=== PATIENT | male | born 1950 | race Caucasian/White ===

== ENCOUNTER 2025-03-17 10:32 | Emergency (ER) | payer OTHER, SELFPAY ==
--- NOTE | ~2025-03-17 | XR_ITS ---
EXAMINATION: XR CHEST 1 VIEW HISTORY: weakness COMPARISON: There are no prior studies available for comparison. FINDINGS: A single AP portable view of the chest performed at 11:33 AM is submitted. The lungs are hyperinflated, consistent with COPD. There are opacities in the right upper lung which could represent pneumonia. There is no pleural effusion, pneumothorax, or pulmonary vascular congestion. The heart is normal in size. There is degenerative disc disease of the spine. XR/XR chest 1V IMPRESSION: COPD. Right upper lung opacities which could represent pneumonia. Follow-up is recommended. Electronically signed by: Ravinder Gonzalez MD 03/17/2025 11:46 AM EDT
[2025-03-17 10:43] VITALS: BP 202/88; PULSE 31; RESP 16; TEMP 36.1; O2SAT 98; BMI 20.9
--- NOTE | 2025-03-17 10:44 | ED.GENADULT ---
HPI - General Adult General Chief complaint: Dizziness Stated complaint: Dehydration Time Seen by Provider: 03/17/25 11:11 Source: patient Mode of arrival: ambulatory Limitations: no limitations History of Present Illness ED Provider: HPI narrative: 75-year-old male, smoker, on medications for COPD, cholesterol, lisinopril, was seen at urgent care last week apparently diagnosed with pneumonia, he was noted to have bradycardia and was told to go to the ER but he declined, he states he feels fine and has hiked [place]. Denies chest pain, denies ongoing dyspnea no fevers or chills. He presented because he feels dehydrated would like IV fluids, reports dry mouth and increased urination. Related Data Allergies Allergy/AdvReac Type Severity Reaction Status Date / Time No Known Allergies Allergy Verified 03/17/25 10:43 Review of Systems Constitutional: Constitutional: Reports as per [facility] Social History Social History Unable to assess alcohol history related to: Unknown Smoked in Last 30 Days: Yes Use of substances other than those prescribed or required for medical reasons: Unknown Advance Directives: No Advance Directives Information Provided: No Do you have a plan to hurt others: No Plan Physical Exam ED Vital Signs: Vital Signs - 24 hr 03/17/25 10:43 03/17/25 12:30 03/17/25 12:56 Temperature 97.0 F Pulse Rate 31 L 30 L 31 L Respiratory Rate 16 17 Blood Pressure 202/88 H 190/65 H Pulse Oximetry 98 98 Oxygen Delivery Method Room Air Room Air 03/17/25 15:39 03/17/25 18:19 03/17/25 18:25 Temperature 97.7 F Pulse Rate 32 L 34 L 34 L Respiratory Rate 17 16 16 Blood Pressure 163/103 H 155/54 H Pulse Oximetry 95 98 Oxygen Delivery Method Room Air Room Air BMI result Body Mass Index 20.9 Const Other: General: ?Appears of stated age ? Neck: Supple, no LAD ? ?CV: Bradycardia radial pulses +2 ? ?Resp: ?No wheezing rales rhonchi no stridor moving air well ? Abd: ?Bowel sounds are present, no tenderness no rebound no rigidity ? ?MSK: FROM, strength 5/5 all extremities, no lower extremity edema ? Skin: Warm, dry, intact, ? ?Neuro: ?Alert and oriented x3, moving upper and lower extremities symmetrically, no obvious facial asymmetry noted, cranial nerves 2-12 intact Course Course Course Narrative: This is an RME: Additional HPI, ROS, PE not included below will be deferred to primary provider. RME assessment and note performed by: Kinza Bright PA-C This is a 25-rl[age]ad-male, with a hx of HTN on lisinopril 10mg, HLD, COPD, who presents to the ER with concerns of urinary frequency, increased thirst. Reporting some dizziness. No CP or SOB Pt was diagnosed pneumonia at an urgent care this morning. Was told to report to the ER due to low heart rate and dehydration Lungs with expiratory wheezes throughout all lung maddox, bradycardic. BP elevated Plan: Labs, EKG, CXR, further ER eval needed Medications Administered Discontinued Medications Generic Name Dose Route Start Last Admin Trade Name Freq PRN Reason Stop Dose Admin Albuterol/Ipratropium 3 ml 03/17/25 18:13 03/17/25 18:23 Albuterol/Iprat 2.5/0.5mg 3 Ml Ampul.Neb INHALE 03/17/25 18:14 3 ml ONCE ONE Administration Amlodipine Besylate 10 mg 03/17/25 11:55 03/17/25 12:02 Amlodipine Besylate 10 Mg Tablet PO 03/17/25 11:56 10 mg ONCE ONE Administration Protocol Sodium Chloride 1,000 mls @ 999 mls/hr 03/17/25 12:00 03/17/25 13:07 Ns IV 03/17/25 13:00 Infused .Q1H1M GEOFF Infusion Medical Decision Making Medical Decision Making MDM Narrative: 11:34 AM 03/17/2025 (Dr. Man Colbert): Patient noted to have either 3-1 second-degree AV quan block or full heart block, patient was seen urgent care last week with decreased heart rate and he was told to go to the ER and apparently hit him go at that time he is coming in because he states he is dehydrated and I did discuss with the patient that he has a really bad heart block, but him and his a more concentrated whether he needs IV fluids. With that said I reached out to Dr. Ivory from Cardiology because patient is also extremely hypotensive and he confirmed that this is a full heart block and needs to be transferred to [facility], as far as managing blood pressure to give him his regular lisinopril or 10 mg amlodipine, I was aiming for more of a nitro drip as not to add additional AV quan block but if it is a full heart block I think it is reasonable to give him a calcium channel nereida. I will discuss with the patient, I have been trying to make them understand that this is dangerous and we will determine whether they agreeable to transfer and further management. He has full capacity to make decisions. 11:53 AM 03/17/2025 (Dr. Man Colbert): The Dr. Ivory evaluated the patient at bedside and also had a hard time with the patient, patient is convinced that if he gets fluids his AV quan block we will resolve, I spoke to the patient and told him that I will give him IV fluids but at the same time I am planning to transfer to [facility], with that said I still have a suspicion that he is going to receive IV fluids and then leave the ER, so I will have AMA form on file with him understanding that if he leaves against medical advice of myself and information systems security manager he will and he has full capacity to understand then, he has verbalized back to me. I am also calling [facility] transfer line 12:15 PM 03/17/2025 (Dr. Man Colbert): Dr. Trevino at [facility] is accepting provider 12:39 PM 03/17/2025 (Dr. Man Colbert): He is agreeable for transfer Contacted at [facility]. They do not have a bed today. I did discuss the plan with the patient. So unfortunately they do not have a bed. I recommend transferred to a tertiary center so he could get the pacemaker as soon as possible. However patient does not want to go to [place] does not want to [facility]. He does not go onto go to any other tertiary hospital that is outside of his area. He is concerned that his is not able to traveled with him. I discussed the risk this plan. He agrees and understands. Discussed the case with the hospitalist and ICU doctor on-call. They recommended holding patient is a ER at this time until bed is available at [facility]. At this time we will continue to observe the patient and hold him in the ER [facility] has a bed for patient. Patient will be transfer. BP remains stable. Patient appears well. Differential Diagnosis Differential Diagnoses: The differential diagnosis associated with the presentation includes Admission/Observation Consideration of admission/observation: Escalation of care including admission/observation considered Consult Healthcare Provider Management of the patient was discussed with: Stylist Assistant (Cachorro Burton) Lab Data 03/17/25 11:08 03/17/25 11:07 Labs: Lab Results 03/17/25 03/17/25 03/17/25 Range/Units 11:07 11:08 13:33 WBC 11.5 H (4.8-10.8) X10*3/uL RBC 4.37 L (4.60-5.80) X10*6/uL Hgb 14.3 (14.0-18.0) g/dl Hct 42.0 (42.0-52.0) % MCV 96.1 (80.0-98.0) fL MCH 32.7 (27.0-33.0) pg MCHC 34.0 (31.0-36.0) g/dl RDW 13.7 (11.0-16.0) % Plt Count 285 (160-400) X10*3/uL MPV 9.5 (9.4-12.4) fL Immature Gran % (Auto) 0.3 (0.0-0.4) % Neut % (Auto) 76.2 H (45-73) % Lymph % (Auto) 16.3 L (20-40) % Gallia % (Auto) 6.4 (2-11) % Eos % (Auto) 0.7 (0-4) % Baso % (Auto) 0.1 (0-2) % Lymph # (Auto) 1.9 (1.2-4.9) X10*3/uL Gall[place] # (Auto) 0.7 (0.1-1.2) X10*3/uL Eos # (Auto) 0.1 (0.0-0.4) X10*3/uL Baso # (Auto) 0.0 (0.0-0.2) X10*3/uL Abs Immat Gran (auto) 0.04 H (0.00-0.03) X10*3/uL Absolute Neuts (auto) 8.8 H (2.0-8.3) x10*3/uL Absolute Nucleated RBC 0.000 (0.0-0.012) X10*3/uL Nucleated RBC % (auto) 0.0 (0.0-0.2) /100WBC Sodium 140 (135-145) mmol/L Potassium 4.1 (3.3-5.1) mmol/L Chloride 108 (96-108) mmol/L Carbon Dioxide 25 (22-29) mmol/L Anion Gap 11 L (12-20) BUN 10 (9-16) mg/dL Creatinine 0.70 (0.5-1.4) mg/dL Estim Creat Clear Calc 75.6 Estimated GFR > 60 Random Glucose 100 (60-115) mg/dL Calcium 8.8 (8.4-10.2) mg/dL Magnesium 2.4 (1.6-2.6) mg/dL Total Bilirubin 0.6 (0.0-1.0) mg/dL Direct Bilirubin 0.2 (0.0-0.5) mg/dL AST 36 (5-37) U/L ALT 50 H (0-40) U/L Alkaline Phosphatase 95 (39-117) U/L Troponin I High Sens 12.6 (<3.5-35.0) ng/L Total Protein 6.7 (6.5-8.0) g/dL Albumin 4.0 (3.5-5.0) g/dL TSH 0.56 (0.32-4.0) uIU/mL COVID-19 (SHAYY) Negative (Negative) COVID-19 Clin Com See Note Influenza Type A (SAYDA) Negative (Negative) Influenza Type B (SAYDA) Negative (Negative) Influenza A & B Note See Note Independent Interpretation I performed an independent interpretation of an: EKG (31 beats per minute complete heart block) Chronic Conditions Patient?s care impacted by: Hypertension Critical Care Time Critical Care Time Critical Care Time: Yes Total Critical Care Time: 45 Attestation: Time is exclusive of separately billable procedures. Time includes: direct patient care, patient reassessment, coordination of patient care, interpretation of data (laboratory data, pulse oximetry, arterial blood gases and chest xrays), review of patient's medical records, medical consultation and documentation of patient care. Procedures excluded from critical care time: central intravenous line placement and electrocardiography. Discharge Plan Discharge Clinical Impression: Complete heart block, Hypertensive urgency Patient Disposition: Xfer Other Transfer Details: [facility] Print Language: Mozambican
--- NOTE | 2025-03-17 10:46 | ECG_ITS ---
Test Reason : DISSINESS Blood Pressure : */* mmHG Vent. Rate : 31 BPM Atrial Rate : 93 BPM P-R Int : 140 ms QRS Dur : 122 ms QT Int : 560 ms P-R-T Axes : 63 33 53 degrees QTcB Int : 402 ms Complete Heart Block Abnormal ECG No previous ECGs available Referred By: Kinza Bright Electronically Signed By: DWAYNE LONDON
[2025-03-17 11:13] LABS: MANUAL DIFF FLAG NO
[2025-03-17 11:14] LABS: Hematocrit 42.0 % (42.0-52.0); Hemoglobin 14.3 g/dl (14.0-18.0); Imm Gran Abs Auto 0.04 X10*3/uL (0.00-0.03); Imm Gran Pct Auto 0.3 % (0.0-0.4); Lymphocytes Absolute Auto 1.9 X10*3/uL (1.2-4.9); Mean Corpuscular HGB Conc 34.0 g/dl (31.0-36.0); Mean Corpuscular Hemoglobin 32.7 pg (27.0-33.0); Mean Corpuscular Volume 96.1 fL (80.0-98.0); NRBC Abs Auto 0.000 X10*3/uL (0.0-0.012); NRBC Pct Auto 0.0 /100WBC (0.0-0.2); Platelet Count 285 X10*3/uL (160-400); Red Blood Count 4.37 X10*6/uL (4.60-5.80); White Blood Count 11.5 X10*3/uL (4.8-10.8)
[2025-03-17 11:28] LABS: Alanine Aminotransferase 50 U/L (0-40); Albumin Level 4.0 g/dL (3.5-5.0); Alkaline Phosphatase 95 U/L (39-117); Anion Gap 11 (12-20); Aspartate Amino Transferase 36 U/L (5-37); Blood Urea Nitrogen 10 mg/dL (9-16); Calcium 8.8 mg/dL (8.4-10.2); Carbon Dioxide 25 mmol/L (22-29); Chloride 108 mmol/L (96-108); Creatinine Clr Calc Pharmacy 75.6; Estimated Glomerular Filt Rate > 60; Magnesium 2.4 mg/dL (1.6-2.6); Potassium 4.1 mmol/L (3.3-5.1); Sodium 140 mmol/L (135-145); Total Protein 6.7 g/dL (6.5-8.0)
[2025-03-17 11:28] LABS: COVID-19 Test Negative (Negative); IDNOW Serial# 6674DD1D
[2025-03-17 11:35] LABS: Troponin-I High Sensitivity 12.6 ng/L (<3.5-35.0)
[2025-03-17 11:36] LABS: IDNOW Serial# 55D5AD1C; Influenza B2 Negative (Negative)
--- NOTE | 2025-03-17 11:56 | P.CONCA_ITS ---
History of Present Illness History of Present Illness Date of Service: 03/17/25 Chief complaint: Dehydration Narrative: This is a cardiology consultation regarding heart block. Patient himself is a very poor historian and not able to give me any meaningful information. He repeatedly keeps saying that he was just dehydrated. It seems that he might have gone to urgent Care few days back and they had recommended hospital evaluation but not entirely clear as to what happened. Patient is not able to give me much information at all. He thinks he is fine. He denies any active chest pains or any shortness of breath or presyncope/syncope. At baseline, seems he has hypertension on lisinopril. Review of Systems 2 Review of Systems: Yes all other systems are reviewed and are negative Constitutional: Constitutional: Reports as per HPI and Reports no additional constitutional complaints Eyes: Eyes: Reports as per HPI and Denies no additional eye complaints ENT: Denies system reviewed and no additional complaints, except as documented and Reports as per HPI Cardiovascular: Cardiovascular: Reports as per HPI, Reports no additional cardiovascular complaints, Denies acrocyanosis, Denies cool extremities, Denies chest pain, Denies leg edema, Denies lightheadedness, Denies palpitations and Denies dyspnea Respiratory: Respiratory: Reports as per HPI, Denies no additional respiratory complaints and Denies dyspnea Gastrointestinal: Gastrointestinal: Reports as per HPI and Denies no additional gastrointestinal complaints Genitourinary: Genitourinary: Reports no additional male genitourinary complaints and Reports as per HPI Musculoskeletal: Musculoskeletal: Reports no additional musculoskeletal complaints and Reports as per HPI Integumentary/Breasts: Skin/Breast: Reports system reviewed and no additional complaints, except as docu Neurologic: Reports system reviewed and no additional complaints, except as documented and Reports as per HPI Psychiatric: Psychiatric: Reports no additional psychiatric complaints and Reports as per HPI Endocrine: Endocrine: Reports no additional endocrine complaints, Reports as per HPI and Denies palpitations Hematologic/Lymphatic: Hematologic/Lymphatic: Reports no additional hematologic/lymphatic complaints and Reports as per HPI Allergic/Immunologic: Allergic/Immunologic: Reports no additional allergic/immunologic complaints and Reports as per HPI [facility] Family History Pertinent family history: No pertinent family history Social History Social History Advance Directives: No Advance Directives Information Provided: No Do you have a plan to hurt others: No Plan Meds Allergies Allergy/AdvReac Type Severity Reaction Status Date / Time No Known Allergies Allergy Verified 03/17/25 10:43 Active Medications: Current Medications Sodium Chloride (Ns) 1,000 mls @ 999 mls/hr IV .Q1H1M GEOFF Stop: 03/17/25 13:00 Physical Exam 2 Vital Signs: Vital Signs: Last Vital Signs Temp 97.0 F 03/17/25 10:43 Pulse 31 L 03/17/25 10:43 Resp 16 03/17/25 10:43 BP 202/88 H 03/17/25 10:43 Pulse Ox 98 03/17/25 10:43 O2 Del Method Room Air 03/17/25 10:43 BMI result Body Mass Index 20.9 Const: General: comfortable and no acute distress O rientation/consciousness: patient oriented x3 HEENT: Other: Unremarkable Head: Yes normal to inspection Neck: Neck: Yes normal visual inspection Chest: Chest palpation & inspection: normal inspection of the chest Resp: Auscultation: clear to auscultation bilaterally Cardio: Palpation: normal PMI Heart sounds: S1 normal heart sound present, S2 normal heart sound present, no gallops, no murmurs and no rubs GI: Palpation (GI): Soft to palpation Back/Spine/Pelvis: Other: unremarkable Skin: General skin exam: no rashes or lesions noted Neuro: General: patient oriented x3 Extrem: General: Yes normal to inspection Psych: Mental Status: mental status grossly normal Objective Labs and Meds 03/17/25 11:08 03/17/25 11:07 Lab results: Laboratory Results - last 24 hr 03/17/25 03/17/25 11:07 11:08 WBC 11.5 H RBC 4.37 L Hgb 14.3 Hct 42.0 MCV 96.1 MCH 32.7 MCHC 34.0 RDW 13.7 Plt Count 285 MPV 9.5 Immature Gran % (Auto) 0.3 Neut % (Auto) 76.2 H Lymph % (Auto) 16.3 L Dickson % (Auto) 6.4 Eos % (Auto) 0.7 Baso % (Auto) 0.1 Lymph # (Auto) 1.9 Dickson # (Auto) 0.7 Eos # (Auto) 0.1 Baso # (Auto) 0.0 Abs Immat Gran (auto) 0.04 H Absolute Neuts (auto) 8.8 H Absolute Nucleated RBC 0.000 Nucleated RBC % (auto) 0.0 Sodium 140 Potassium 4.1 Chloride 108 Carbon Dioxide 25 Anion Gap 11 L BUN 10 Creatinine 0.70 Estim Creat Clear Calc 75.6 Estimated GFR > 60 Random Glucose 100 Calcium 8.8 Magnesium 2.4 Total Bilirubin 0.6 Direct Bilirubin 0.2 AST 36 ALT 50 H Alkaline Phosphatase 95 Troponin I High Sens 12.6 Total Protein 6.7 Albumin 4.0 COVID-19 (SHAYY) Negative COVID-19 Clin Com See Note Influenza Type A (SAYDA) Negative Influenza Type B (SAYDA) Negative Influenza A & B Note See Note ECG Interpretation: EKG shows underlying sinus rhythm with complete heart block and escape rhythm at 31/Min. Imaging Radiologist's impression: Impressions Chest X-Ray 03/17/25 11:33 IMPRESSION: COPD. Right upper lung opacities which could represent pneumonia. Follow-up is recommended. Electronically signed by: Ravinder Gonzalez MD 03/17/2025 11:46 AM EDT RP Assessment and Plan (1) Complete heart block: Status: Acute Discussed about the fact that he is in heart block and will require pacemaker placement. However, patient kept repeating the fact that he does not feel a need to stay in the hospital. Clearly explained him that he could if he left the hospital. However, he kept insisting he might just leave. I communicated that with ER physician. He should be transferred to [facility] for EP evaluation/pacemaker. (2) Hypertensive urgency: Status: Acute He has baseline hypertension but that could be much worse because of the heart block. He can get this home dose of lisinopril and we can add some amlodipine. Once the rhythm issues resolved, blood pressure will improve. Procedures Date of Service Date of Service: 03/17/25
[2025-03-17 12:30] VITALS: PULSE 30
--- OUTSIDE RECORDS SUMMARY | 2025-03-17 12:53 | XMS_ITS | Encounter Summary ---
Author Organization [employer] Address [address] [place] [address] Care Team Providers Care Podiatric Medicine Doctor Name Role Phone Unavailable Primary Care Provider Unavailabl e Encounter Details Date Type Department Care Team (Latest Contact Info) Description 12/16/2020 Abstract [facility] CONVERSIONS Dental, Provider, DDS Social History Tobacco Use Types Packs/Day Years Used Date Smoking Tobacco: Never Assessed Sex and Gender Information Value Date Recorded Sex Assigned at Male 04/16/2022 10:23 AM EDT Legal Sex Male 10:23 AM EDT Gender Identity Male 04/16/2022 10:23 AM EDT Sexual Orientation Straight 04/16/2022 10 :23 AM EDT documented as of this encounter Plan of Treatment Not on file documented as of this encounter Visit Diagnoses Not on filedocumented in this encounter
--- OUTSIDE RECORDS SUMMARY | 2025-03-17 12:53 | XMS_ITS | Clinical Summary ---
Author Organization [address] Address [address] [place] [phone] Phone Care Team Providers Care Roller Turner Name Role Phone Physician, No Pcp Primary Care Provider Unavaila ble Allergies No known active allergies Medications lisinopriL (PRINIVIL,ZESTR IL) 10 mg tablet Take 1 tablet (10 mg total) by mouth 1 (one) time each day. 06/21/2020 Active mometasone-form oterol (DULERA 100) 100-5 mcg/actuation inhaler Inhale 1 puff by mouth. Active albuterol HFA (PROAIR HFA ; PROVENTIL HFA ; VENTOLIN HFA) 90 mcg/actuation inhaler Inhale 1 puff by mouth every 4 (four) hours if needed. 01/09/2023 Active coenzyme Q-10 100 mg capsule Take 1 capsule (100 mg total) by mouth 1 (one) time each day. Active rosuvastatin 10 mg capsule, sprinkle Take 10 mg by mouth 1 (one) time each day. 08/19/2023 Active multivitamin tablet Take 1 tablet by mouth 1 (one) time each day. Active diclofenac (VOLTAREN) 75 mg EC tablet Take 1 tablet (75 mg total) by mouth 2 (two) times a day. Do not crush, chew, or split. Active acetaminophen (TYLENOL) 325 mg tablet Take 1 tablet (325 mg total) by mouth every 6 (six) hours if needed for mild pain. Active phenazopyridine (PYRIDIUM) 200 mg tablet Take 1 tablet (200 mg total) by mouth every 8 (eight) hours if needed (urinary discomfort). 21 tablet 10/23/2024 Active Surgical History Surgery Date Site/Laterality Comments TRANSURETHRAL RESECTION OF BLADDER TUMOR HIP ARTHROPLASTY Right CYSTOGRAM IMPRESSION Medical History Medical History Date Comments Hypertension Hyperlipidemia COPD (chronic obstructive pulmonary disease) ([facility] V24, [facility] V28) PTSD (post-traumatic stress disorder) Cancer ([facility] V24, [facility] V28) bladder Arthritis Fractures Social History Tobacco Use Types Packs/Day Years Used Date Smoking Tobacco: Every Day Cigarettes Tobacco Cessation:Ready to Q uit: Not Asked; Counseling Given: Not Answered Alcohol Use Standard Drinks/Week Comments Not Currently 0 (1 standard drink = 0.6 oz pur e alcohol) Interpersonal Safety Answer Date Record ed Physical Abuse Unrecognized value 10/23/2024 Verbal Abuse Unrecognized value 10/23/2024 Sex and Gender Information Value Date Recorded Sex Assigned at Not on file Legal Sex Male 6:00 PM EST Gender Identity Not on file Sexual Orientation Straight 10/23/2024 9: 27 AM EDT Obstetrics History Last Filed Vital Signs Vital Sign Reading Time Taken Comments Blood Pressure 146/78 10/23/2024 1:41 PM EDT Pulse 74 10/23/2024 1:41 PM EDT Temperature 36.1 C (97 F) 10/23/2024 1:41 PM EDT Respiratory Rate 20 10/23/2024 1:41 PM EDT Oxygen Saturation 98% 10/23/2024 1:41 PM EDT Inhaled Oxygen Concentration - - Weight 59 kg (130 lb) 10/23/2024 9:30 AM EDT Height 170.2 cm (5' 7 ) 10/23/2024 9:30 AM EDT Body Mass Index 20.36 10/23/2024 9:30 AM EDT Plan of Treatment Health Maintenance Due Date Last Done Comments Pneumococcal Vaccine: 50+ Years (2 of 2 - PPSV23, PCV20, or PCV21) 12/09/2018 10/14/2018, 03/08/2000 RSV Immunization Adult Patients (1 - 1-dose 75+ series) 02/24/2023 Cholesterol Screening (Lipid Panel) 01/14/2024 Hepatitis C Screening 01/14/2024 Social Influencers of Health Screening 01/14/2024 Depression Screening 06/17/2024 COVID-19 Vaccine ( season) 2025 04/01/2024, 05/20/2022, 11/09/2021, Additional history exists Influenza Vaccine (#1) 2025 03/17/2024, 2021 Falls Risk Assessment 10/23/2025 10/23/2024 Hypertension/CHF/CAD Annual BMP Blood Test 10/23/2025 10/23/2024 DTaP,Tdap,and Td Vaccines (3 - Td or Tdap) 10/14/2028 10/14/2018, 03/08/2000 Zoster Vaccines Completed 05/17/2021, 12/14/2020 HIB Vaccines Aged Out No longer eligi ble based on patient's age to complete this topic HPV Vaccines Aged Out No longer eligi ble based on patient's age to complete this topic Hepatitis A Vaccines Aged Out No long er eligible based on patient's age to complete this topic Hepatitis B Vaccines Aged Out No long er eligible based on patient's age to complete this topic IPV Vaccines Aged Out No longer eligi ble based on patient's age to complete this topic MMR Vaccines Aged Out No longer eligi ble based on patient's age to complete this topic Meningococcal ACWY Vaccine Aged Out N o longer eligible based on patient's age to complete this topic Meningococcal B Vaccine Aged Out No l onger eligible based on patient's age to complete this topic RSV Immunization Patients Under 20 months Aged Out No longer eligible based on patient's age to complete this topic Varicella Vaccines Aged Out No longer eligible based on patient's age to complete this topic Medical Devices Implanted Type Area Bias Machine Operator Helper Device Identifier Shelf Expiration Date Model / Serial / Lot Stent Uret Stretch Vl 7fr 22-3 - Sn/A - [id number] Implanted:Qty: 1 on 10/23/2024 by Everton Piper MD at [facility] Stents Right: [employer] Y 11/05/2026 [id number] / N/A / [id number] Procedures Procedure Name Priority Date/Time Associated Diagnosis Comments BASIC METABOLIC PANEL Routine 10/23/2024 9:12 AM EDT from Last 3 Months or Most Recently Relevant to Health Maintenance Results * (ABNORMAL) Basic metabolic panel (10/23/2024 9:12 AM EDT) Sodium 137 133 - 145 mmol/L LAB CHEMISTRY METHOD 10/23/2024 9:52 AM [facility] Potassium 3.8 3.5 - 5.5 mmol/L LAB CHEMISTRY METHOD 10/23/2024 9:52 AM [facility] Chloride 105 96 - 110 mmol/L LAB CHEMISTRY METHOD 10/23/2024 9:52 AM [facility] CO2 27 21 - 32 mmol/L LAB CHEMISTRY METHOD 10/23/2024 9:52 AM [facility] Anion Gap 5 3 - 11 LAB CHEMISTRY METHOD 10/23/2024 9:52 AM [facility] Glucose 100 70 - 100 mg/dL LAB CHEMISTRY METHOD 10/23/2024 9:52 AM [facility] BUN 12 5 - 25 mg/dL LAB CHEMISTRY METHOD 10/23/2024 9:52 AM [facility] Creatinine 0.62(L) 0.70 - 1.30 mg/dL LAB CHEMISTRY METHOD 10/23/2024 9:52 AM [facility] eGFR 99 >=60 mL/min/1. 73m2 LAB CHEMISTRY METHOD 10/23/2024 9:52 AM [facility] Comment:Calculation based on the Chronic Kidney Disease Epidemiology Collaboration (CKD-EPI) equation refit without adjustment for race. BUN/Creatinine Ratio 19.4 LAB CHEMISTRY METHOD 10/23/2024 9:52 AM [facility] Calcium 9.2 8.5 - 10.5 mg/dL LAB CHEMISTRY METHOD 10/23/2024 9:52 AM [facility] Blood Venous blood specimen / Unknown Venipuncture / Unknown 10/23/2024 9:12 AM EDT 10/23/2024 9:20 AM EDT Everton Piper MD LAB BLOOD ORDERABLES Final Resul t [facility] [address] [place] [address], from Last 3 Months or Most Recently Relevant to Health Maintenance Insurance [facility]IC[facility] Care Teams Roller Turner Relationship Specialty Start Date End Date Physician, No Pcp PCP - General 10/23/24
--- OUTSIDE RECORDS SUMMARY | 2025-03-17 12:53 | XMS_ITS | Encounter Summary ---
Demographics Address [address] [place] [address] Home Phone Mobile Phone Preferred Language en Marital Status Jehovah'S Witness Affiliation Unknown Race White Ethnic Group Not or Lati no Author Organization [facility] Address [address] [place] [address] Care Team Providers Care Warehouse Shipping Receiving Clerk Name Role Phone Physician, No Pcp Primary Care Provider Unavaila ble Encounter Details Date Type Department Care Team (Late st Contact Info) Description 04/30/2024 Lab Requisition [facility] - Main Lab [address] [facility] [address] Lore Shabazz NP [address] [place] [address] Painful micturition, unspecified Social History Tobacco Use Types Packs/Day Years Used Date Smoking Tobacco: Never Assessed Sex and Gender Information Value Date Recorded Sex Assigned at Not on file Legal Sex Male 6:00 PM EST Gender Identity Not on file Sexual Orientation Straight 10/23/2024 9: 27 AM EDT documented as of this encounter Plan of Treatment Not on file documented as of this encounter Procedures Procedure Name Priority Date/Time Associated Diagnosis Comments BACTERIAL IDENTIFICATION AND SUSCEPTIBILITY, AEROBIC Routine 04/29/2024 12:00 AM EST Painful micturition, unspecified documented in this encounter Results * (ABNORMAL) Bacterial identification and susceptibility, aerobic (04/29/2024 12:00 AM EST) Culture, Bacterial ID and Sensitivity Enterococcus faecalis(A) DANYA 05/01/2024 8:49 AM EST [facility] Comment: Edited result: Previously reported as Enterococcus species on 04/30/2024 at 1253 EST. Other Topography unknown / Unknown 04/29/2024 04/30/2024 11:44 AM EST Narrative Organism Antibiotic Method Susceptibility Enterococcus faecalis Benzylpenicillin DANYA 4 ug/ml: Susceptible Enterococcus faecalis Ampicillin DANYA <=2 ug/ml: Susceptible Enterococcus faecalis Ciprofloxacin DANYA <=0.5 ug/ml: Susceptible Enterococcus faecalis Levofloxacin DANYA 0.5 ug/ml: Susceptible Enterococcus faecalis Linezolid DANYA 2 ug/ml: Susceptible Enterococcus faecalis Vancomycin DANYA 1 ug/ml: Susceptible Enterococcus faecalis Tetracycline DANYA >=16 ug/ml: Resistant Enterococcus faecalis Nitrofurantoin DANYA 32 ug/ml: Susceptible us Lore Shabazz NP LAB MICROBIOLOGY - GENERA L ORDERABLES Final Result [facility] ([facility] [address] [place] [address], documented in this encounter Visit Diagnoses Diagnosis Painful micturition, unspecified documented in this encounter Care Teams Warehouse Shipping Receiving Clerk Relationship Specialty Start Date End Date Physician, No Pcp PCP - General 10/23/24 documented as of this encounter
--- OUTSIDE RECORDS SUMMARY | 2025-03-17 12:53 | XMS_ITS | Encounter Summary ---
Author Organization [facility] Address [address] [facility] [address] [place] [address] Care Team Providers Care Plant Operations Worker Name Role Phone Unavailable Primary Care Provider Unavailabl e Encounter Details Date Type Department Care Team (Latest Contact Info) Description 07/28/2018 Abstract [facility] CONVERSIONS Dental, Provider, DDS Social History [...]
--- OUTSIDE RECORDS SUMMARY | 2025-03-17 12:53 | XMS_ITS | Clinical Summary ---
Author Organization [facility] Address [address] [facility] [address] [place] [address] Care Team Providers Care Doubling Machine Operator Name Role Phone Unavailable Primary Care Provider Unavailabl e Social History Tobacco Use Types Packs/Day Years Used Date Smoking Tobacco: Never Assessed Sex and Gender Information Value Date Recorded Sex Assigned at Male 04/16/2022 10:23 AM EDT Legal Sex Male 10:23 AM EDT Gender Identity Male 04/16/2022 10:23 AM EDT Sexual Orientation Straight 04/16/2022 10 :23 AM EDT Plan of Treatment Health Maintenance Due Date Last Done Comments Depression Screening 1950 Lipid Panel 1950 Alcohol/Substance Use Screening 1960 Tobacco Screening 1960 DTaP/Tdap/Td Vaccines (1 - Tdap) 02/24/1967 Pneumococcal Vaccine: 50+ Ye ars (1 of 1 - PCV) 02/24/1998 Zoster Vaccines (1 of 2) 02/24/1998 RSV Patients and Pa tients Aged 60 years or older (1 - 1-dose 75+ series) 02/24/2023 COVID-19 Vaccine ( - 2023-2 5 season) 2025 Influenza Vaccine (#1) 2025 HIB Vaccines Aged Out No longer eligi [...] patient's age to complete this topic Meningococcal Vaccine Aged Out No mary tia eligible based on patient's age to complete this topic RSV under 20 months Aged Out No longe r eligible based on patient's age to complete this topic Rotavirus Vaccines Aged Out No longer eligible based on patient's age to complete this topic
[2025-03-17 12:56] VITALS: BP 190/65; PULSE 31; RESP 17; O2SAT 98
[2025-03-17 15:39] VITALS: BP 163/103; PULSE 32; RESP 17; O2SAT 95
[2025-03-17 18:19] VITALS: BP 155/54; PULSE 34; RESP 16; TEMP 36.5; O2SAT 98
[2025-03-17] MEDS: Albuterol/Iprat 2.5/0.5MG 3 ML AMPUL.NEB INHALE (18:23)
[2025-03-17 18:25] VITALS: PULSE 34; RESP 16; O2SAT 95
--- NOTE | 2025-03-17 18:45 | PC.NURSE ---
Nurse to nurse report given to Ericka on [facility] at [facility]
[2025-03-18 07:12] VITALS: BP 00/00; PULSE 34; RESP 16; TEMP -17.7; TEMP 0; O2SAT 0
== END 2025-03-18 07:13 | disposition short-term general hospital (02) ==
PROVIDERS: Emergency Medicine; Physician Assistant Medical; Emergency Provider Student in an Organized Health Care Education/Training Program
DX: I44.2 Atrioventricular block, complete (principal); I16.0 Hypertensive urgency; R00.1 Bradycardia, unspecified; R53.1 Weakness; R68.2 Dry mouth, unspecified; J44.9 Chronic obstructive pulmonary disease, unspecified; Z03.818 Encounter for observation for suspected exposure to other biological agents ruled out; Z79.899 Other long term (current) drug therapy
CPT/HCPCS: 36415; 71045; 80048; 80076; 83735; 84443; 84484; 85025; 87502; 87635; 93005; 94640; 96360; 99285; 99291

== ENCOUNTER → 2025-03-17 11:13 | Outpatient (BNV) | payer OTHER, SELFPAY | PROVIDERS: Emergency Provider Emergency Medicine; Visit Provider Radiology Diagnostic Radiology | DX: J44.9 Chronic obstructive pulmonary disease, unspecified (principal); R91.8 Other nonspecific abnormal finding of lung field | CPT/HCPCS: 71045 ==

== ENCOUNTER → 2025-03-17 11:16 | Outpatient (BNV) | payer OTHER, SELFPAY | PROVIDERS: Emergency Provider Emergency Medicine; Visit Provider Internal Medicine | DX: I44.2 Atrioventricular block, complete (principal); I16.0 Hypertensive urgency | CPT/HCPCS: 93010; 99285 ==